=== PATIENT | female | born 1995 | race American Indian/Alaskan Native ===

== ENCOUNTER 2017-04-18 22:30 | Emergency (ER) | payer MEDICAID ==
[2017-04-19 00:54] LABS: Basophils % (Auto) 0.5 % (0.0-1.8); Eosinophils % (Auto) 6.8 % (0.0-4.3); Hematocrit 40.7 % (30.3-42.9); Hemoglobin 13.3 gm/dl (10.1-14.3); Mean Corpuscular HGB Conc 33 % (30-34); Mean Corpuscular Hemoglobin 29 pg (28-32); Mean Corpuscular Volume 90 fl (79-97); Platelet Count 276 K/mm3 (140-440); Red Blood Count 4.55 M/mm3 (3.65-5.03); Red Cell Distribution Width 13.8 % (13.2-15.2)
[2017-04-19 01:10] LABS: Amylase 106 units/L (27-131); Anion Gap 19 mmol/L; Blood Urea Nitrogen 5 mg/dL (7-17); Carbon Dioxide 24 mmol/L (22-30); Chloride 99.8 mmol/L (98-107); Glucose 92 mg/dL (65-100); Lipase 27 units/L (13-60); Potassium 3.9 mmol/L (3.6-5.0); Sodium 139 mmol/L (137-145)
[2017-04-19 01:37] LABS: Bilirubin,Urine NEG (Negative); Blood,Urine NEG (Negative); Ketones,Urine NEG (Negative); Leukocyte Esterase,Urine NEG (Negative); Mucus,Urine 1+ /HPF; Nitrite,Urine NEG (Negative); Protein,Urine <15 mg/dL mg/dL (Negative)
--- NOTE | 2017-04-19 02:10 | Emergency Department Report ---
HPI - General Chief Complaint: Abdominal Pain Time Seen by Provider: 04/19/17 01:42 - HPI HPI: This is a 21-year-old -[place] female presents to the emergency department from home with complaint of some lower abdominal/pelvic cramping and some vaginal spotting that started earlier today. The patient is currently . She is not taken anything for symptoms prior to presentation. She is on vitamins. She does not have any primary care or [facility]. No recent travel or sick contacts at home. She denies any dysuria, fever, back pain, nausea, vomiting, dysuria. ED Past Medical Hx - Past Medical History Previous Medical History?: Yes Hx Asthma: Yes - Surgical History Past Surgical History?: No - Social History Smoking Status: Never Smoker Substance Use Type: None ED Review of Systems ROS: Stated complaint: 6 WKS W/SPOTTING/STOMACH CRAMPS Other details as noted in HPI Comment: All other systems reviewed and negative Constitutional: denies: chills, fever Eyes: denies: eye pain, eye discharge, vision change ENT: denies: ear pain, throat pain Respiratory: denies: cough, shortness of breath, wheezing Cardiovascular: denies: chest pain, palpitations Gastrointestinal: abdominal pain. denies: nausea, vomiting Genitourinary: other (vaginal bleeding/spotting). denies: dysuria, discharge Musculoskeletal: denies: back pain, joint swelling, arthralgia Skin: denies: rash, lesions Neurological: denies: headache, weakness, paresthesias Physical Exam - Physical Exam Vital Signs: Vital Signs 04/19/17 04/19/17 04/19/17 00:17 02:02 02:08 Temperature 98.8 F 98.0 F Pulse Rate 68 68 Respiratory 18 18 Rate Blood Pressure 125/77 Blood Pressure 109/51 [Left] O2 Sat by Pulse 100 Oximetry Physical Exam: GENERAL: The patient is well-developed well-nourished. HEENT: Normocephalic. Atraumatic. Extraocular motions are intact. Patient has moist mucous membranes. Pupils equal reactive to light bilaterally. NECK: Supple. Trachea is midline. CHEST/LUNGS: Clear to auscultation. There is no respiratory distress noted. HEART/CARDIOVASCULAR: Regular. There is no tachycardia. There is no gallop rub or murmur. ABDOMEN: Abdomen is soft, nontender. No guarding rebound tenderness. Patient has normal bowel sounds. There is no abdominal distention. SKIN: Skin is warm and dry. NEURO: The patient is awake, alert, and oriented. The patient is cooperative. The patient has no focal neurologic deficits. The patient has normal speech. MUSCULOSKELETAL: There is no tenderness or deformity. There is no limitation range of motion. There is no evidence of acute injury. ED Course Vital Signs 04/19/17 04/19/17 04/19/17 00:17 02:02 02:08 Temperature 98.8 F 98.0 F Pulse Rate 68 68 Respiratory 18 18 Rate Blood Pressure 125/77 Blood Pressure 109/51 [Left] O2 Sat by Pulse 100 Oximetry ED Medical Decision Making - Lab Data Result diagrams: 04/19/17 00:29 04/19/17 00:29 - Radiology Data Radiology results: report reviewed Transvaginal/ ultrasound shows a live intrauterine at 6 weeks. - Medical Decision Making 21-year-old female presents with some mild lower abdominal/pelvic cramping and vaginal spotting. Recently found out to be . Labs are grossly unremarkable. Ultrasound shows live intrauterine . Patient already on vitamins. She does not appear to have a urinary tract infection. Vital signs stable including being afebrile. Discussed the diagnosis of threatened miscarriage and the need for close follow-up to continue assessing viability. She will use Tylenol for discomfort. She will return to the ER with any worsening of her symptoms or any acute distress. - Differential Diagnosis , threatened miscarriage, spontaneous miscarriage, fibroids, UTI Critical Care Time: No Critical care attestation.: If time is entered above; I have spent that time in minutes in the direct care of this critically ill patient, excluding procedure time. ED Disposition Clinical Impression: Threatened miscarriage Qualifiers: Weeks of gestation: less than 8 weeks Qualified Code(s): Z3A.01 - Less than 8 weeks gestation of Disposition: -01 TO HOME OR SELFCARE Is pt being admited?: No Condition: Good Instructions: (ED), Threatened Miscarriage (ED) Additional Instructions: Please follow-up with an [facility] in the next few days. Continue with your vitamins. You can take Tylenol every 4 hours, using weight-based dosing, as needed for discomfort. Otherwise do not take any medications that are not prescribed by a physician. Return to the emergency department with any worsening of your vaginal bleeding, any worsening of your abdominal cramping or pain, or any acute distress. Referrals: PRIMARY CARE, [Primary Care Provider] - 3-5 Days [facility] [Provider Group] - 3-5 Days [facility] [Provider Group] - 3-5 Days [facility] [Provider Group] - 3-5 Days Time of Disposition: 03:14
--- NOTE | 2017-04-19 03:05 | Ultrasound Report ---
FINAL REPORT PROCEDURE: US OB TRANSVAGINAL TECHNIQUE: Real-time transabdominal and transvaginal sonography of the uterus, placenta, amniotic fluid, adnexa, and fetus was performed with image documentation. Measurements were obtained to determine age/size. M-mode Doppler was used to document heartbeat. CPT 55273 and 90707 HISTORY: preg, bleeding COMPARISON: No prior studies are available for comparison. FINDINGS: ADDITIONAL GESTATION: None. CRL: 3.6 mm, which corresponds to a gestational age of: 6 weeks, 0 days. Yolk Sac: Normal. Embryonic Cardiac Activity: 115 beats per minute Gestational Sac: Normal. Amniotic fluid: Normal. Cervix: Normal. Right Ovary: Normal. Left Ovary: Normal. Estimated delivery date: 12/13/2017 Uterus and adnexa: Normal. IMPRESSION: 1. Single live intrauterine gestation at approximately 6 weeks, 0 days. 2. EDC by US 12/13/2017
--- NOTE | 2017-04-19 03:05 | Ultrasound Report ---
FINAL REPORT PROCEDURE: US OB TRANSVAGINAL TECHNIQUE: Real-time transabdominal and transvaginal sonography of the uterus, placenta, amniotic fluid, adnexa, and fetus was performed with image documentation. Measurements were obtained to determine age/size. M-mode Doppler was used to document heartbeat. CPT 60622 and 30835 HISTORY: preg, bleeding COMPARISON: No prior studies are available for comparison. FINDINGS: ADDITIONAL GESTATION: None. CRL: 3.6 mm, which corresponds to a gestational age of: 6 weeks, 0 days. Yolk Sac: Normal. Embryonic Cardiac Activity: 115 beats per minute Gestational Sac: Normal. Amniotic fluid: Normal. Cervix: Normal. Right Ovary: Normal. Left Ovary: Normal. Estimated delivery date: 12/13/2017 Uterus and adnexa: Normal. IMPRESSION: 1. Single live intrauterine gestation at approximately 6 weeks, 0 days. 2. EDC by US 12/13/2017
[2017-04-19 03:32] VITALS: BP 117/67
== END 2017-04-19 03:36 | disposition home or self-care (01) ==
LOC: ED 22:30
DX: O20.0 Threatened abortion (principal); J45.909 Unspecified asthma, uncomplicated; Z3A.01 Less than 8 weeks gestation of pregnancy
CPT/HCPCS: 36415; 76801; 76817; 80048; 81001; 82150; 83690; 84702; 84703; 85025